=== PATIENT | female | born 1995 | race Caucasian/White ===

== ENCOUNTER 2021-03-01 00:21 | Emergency (ER) | payer SELFPAY ==
[~2021-03-01] VITALS: Ht 167.6 cm; Wt 59.4 kg
[2021-03-01] MEDS ORDERED: TDAP [DIPH/PERTUSSIS/TET] 0.5 ML VIAL IM ONE ×2 (00:30→00:31)
--- NOTE | 2021-03-01 00:30 | NUR ---
PT BIB FRIEND, WITH OPEN HEAD LACERATION, PT IS VERY ANXIOUS, AND SCARED. WHEN ASKED ABOUT HOW THIS HAPPENED, PT VERBALIZES SHE DOES NOT REMEMBER HOW SHE HIT HER HEAD. PT ADMITS SHE HAS BEEN DRINKING THIS EVENING.
--- NOTE | 2021-03-01 00:38 | NUR ---
PT TAKEN TO CT
--- NOTE | 2021-03-01 00:48 | NUR ---
EMT AT BEDSIDE, TREATING WOUND
--- NOTE | 2021-03-01 00:58 | NUR ---
CALLED UPDATED FATHER ONESIMO, PER PT REQUEST [phone]
--- NOTE | 2021-03-01 01:58 | NUR ---
PT BANDAGED, CLEARED FOR DISCHARGE. GOT IN CONTACT WITH FATHER, WHO IS UNABLE TO PICK HER UP AT THIS TIME. PT AGAPITO DURAN, IS PICKING HER UP.
--- NOTE | 2021-03-01 02:10 | NUR ---
Patient discharged to home in stable condition. Written and verbal after care instructions given. Patient verbalizes understanding of instruction. pt roommate Kendall, here to pick her up.
[2021-03-01 02:30] VITALS: BP 98/61
== END 2021-03-01 02:36 | disposition home or self-care (01) ==
LOC: ER 00:28
DX: S00.03XA Contusion of scalp, initial encounter (principal); S09.8XXA Other specified injuries of head, initial encounter; F10.129 Alcohol abuse with intoxication, unspecified; R51.9 Headache, unspecified; Y90.9 Presence of alcohol in blood, level not specified; W22.8XXA Striking against or struck by other objects, initial encounter; Y93.89 Activity, other specified; Y92.89 Other specified places as the place of occurrence of the external cause; Y99.8 Other external cause status
CPT/HCPCS: 70450; 90471; 90715; 99284; A6403